=== PATIENT | female | born 2000 | race Hispanic/Latino ===

== ENCOUNTER 2022-04-04 16:50 | Emergency (ER) | payer OTHER, SELFPAY ==
[2022-04-04 16:55] VITALS: BP 110/54; PULSE 103; RESP 16; TEMP 36.6; O2SAT 97; BMI 28.3
--- NOTE | 2022-04-04 17:50 | ED.SYNCOPE ---
HPI - Syncope <Adonay Champagne PA-C - Last Filed: 04/04/22 19:44> General Chief Complaint: Syncope Stated Complaint: Syncope/ 16weeks Time Seen by Provider: 04/04/22 16:54 History of Present Illness HPI narrative: Patient is a 21-year-old female who presents to the ED via EMS after suffering a syncopal episode. Patient was resting and got up and had a syncopal episode that was reported to have been witnessed for approximately 10 minutes. Patient is reportedly 16 weeks and was seen by her OB in admin at her 1st appointment she had an ultrasound at that time which was found that she had twin babies at that point. Ob had concerns about 1 of the children and patient had a four-week follow-up at that time the ultrasound did demonstrate that there was 1 child that did not have a identifiable heart rate and the other baby was doing well. Patient denies any vaginal bleeding or discharge or dysuria. Patient is reportedly . Patient reported taking vitamins. No other medical history reported. Patient denies any pain or discomfort. Review of Systems <Adonay Champagne PA-C - Last Filed: 04/04/22 19:44> Review of Systems ROS Unobtainable: All systems reviewed & are unremarkable except as noted in HPI and below Constitutional Constitutional: Denies chills, Denies fatigue, Denies fever(s), Denies frequent falls, Denies lethargy and Denies weakness Eyes Eyes: Denies change in vision, Denies eye discharge, Denies irritation and Denies loss of vision ENT Ears, Nose, Mouth, and Throat: Denies change in voice, Denies dizziness, Denies neck pain, Denies sore throat and Denies throat swelling Cardiovascular Cardiovascular: Denies chest pain, Reports syncope, Denies irregular heart rhythm, Denies lightheadedness, Denies palpitations, Denies dyspnea, Denies dyspnea on exertion and Denies orthopnea Respiratory Respiratory: Denies cough, Denies dyspnea, Denies dyspnea on exertion and Denies wheezing Gastrointestinal Gastrointestinal: Denies abdominal pain, Denies change in bowel habits, Denies diarrhea, Denies nausea and Denies vomiting Genitourinary Genitourinary: Denies hematuria, Denies flank pain, Denies urinary incontinence and Denies urinary urgency Musculoskeletal Musculoskeletal: Denies back pain, Denies muscle weakness, Denies neck pain, Denies numbness and Denies tingling Integumentary/Breasts Skin/Breast: Denies pruritus, Denies erythema, Denies rash and Denies wounds Neurologic Neurologic: Denies behavioral changes, Denies confusion, Denies dizziness, Reports syncope, Denies frequent falls, Denies loss of vision, Denies numbness, Denies tingling and Denies weakness Psychiatric Psychiatric: Denies anxiety, Denies behavioral changes, Denies confusion, Denies depression, Denies homicidal ideation and Denies suicidal ideation Endocrine Endocrine: Denies fatigue, Denies flushing and Denies palpitations Hematologic/Lymphatic Hematologic/Lymphatic: Denies easy bruising Allergic/Immunologic Allergic/Immunologic: Denies urticaria, Denies throat swelling and Denies wheezing Exam <Adonay Champagne PA-C - Last Filed: 04/04/22 19:44> Initial Vital Signs Initial Vital Signs: Vital Signs Temperature 97.8 F 04/04/22 16:55 Pulse Rate 103 H 04/04/22 16:55 Respiratory Rate 16 04/04/22 16:55 Blood Pressure 110/54 L 04/04/22 16:55 Pulse Oximetry 97 04/04/22 16:55 Oxygen Delivery Method 04/04/22 16:55 Const General: cooperative, healthy appearing and comfortable Nutritional Appearance: average body habitus HENMT Head: normal to inspection and normocephalic Ears: hearing grossly normal bilaterally and external ears normal Nose: external nose normal and nares normal Face and sinus: normal facial exam Mouth: oral mucosae normal Teeth and gingiva: dentition normal Throat: posterior oropharynx normal Eyes General: Yes appearance normal, both eyes and all related structures Pupils: PERRL Resp Effort & Inspection: normal respiratory effort and able to speak in complete sentences Auscultation: clear to auscultation bilaterally Percussion: percussion normal Cardio Palpation: normal PMI Rate: regular rate Rhythm: regular rhythm Heart Sounds: S1 normal and S2 normal <Erika Nazario DO - Last Filed: 04/05/22 05:42> Initial Vital Signs Initial Vital Signs: Vital Signs Temperature 97.8 F 04/04/22 16:55 Pulse Rate 103 H 04/04/22 16:55 Respiratory Rate 16 04/04/22 16:55 Blood Pressure 110/54 L 04/04/22 16:55 Pulse Oximetry 97 04/04/22 16:55 Oxygen Delivery Method 04/04/22 16:55 Course <Adonay Champagne PA-C - Last Filed: 04/04/22 19:44> Orders Ordered: Discontinued Medications Diphenhydramine HCl (Diphenhydramine 50 Mg/Ml Vial) 25 mg IV NOW ONE Stop: 04/04/22 16:56 Sodium Chloride (Normal Saline 0.9%) 1,000 mls @ 1,000 mls/hr IV BOLUS ONE Stop: 04/04/22 17:54 Last Infusion: 04/04/22 20:01 Dose: 0 mls/hr Documented By: Admin: 04/04/22 18:10 Dose: 1,000 mls/hr Documented By: MARANDA Reevaluation(s) Reevaluation #1: Patient got fluid bolus and feeling much better. Patient is agreeable to be discharged home I spoke to her about her follow-up she will follow-up with the OB here. Vital Signs Vital signs: Vital Signs - 8 hr 04/04/22 16:55 04/04/22 19:10 Temperature 97.8 F 98.4 F Pulse Rate 103 H 84 Respiratory Rate 16 18 Blood Pressure 110/54 L 113/69 Pulse Oximetry 97 98 Oxygen Delivery Method Room Air Room Air <Erika Nazario DO - Last Filed: 04/05/22 05:42> Orders Ordered: Discontinued Medications Diphenhydramine HCl (Diphenhydramine 50 Mg/Ml Vial) 25 mg IV NOW ONE Stop: 04/04/22 16:56 Sodium Chloride (Normal Saline 0.9%) 1,000 mls @ 1,000 mls/hr IV BOLUS ONE Stop: 04/04/22 17:54 Last Infusion: 04/04/22 20:01 Dose: 0 mls/hr Documented By: Admin: 04/04/22 18:10 Dose: 1,000 mls/hr Documented By: MARANDA Vital Signs Vital signs: Vital Signs - 8 hr 04/04/22 16:55 04/04/22 19:10 Temperature 97.8 F 98.4 F Pulse Rate 103 H 84 Respiratory Rate 16 18 Blood Pressure 110/54 L 113/69 Pulse Oximetry 97 98 Oxygen Delivery Method Room Air Room Air MDM - Syncope <Adonay Champagne PA-C - Last Filed: 04/04/22 19:44> Differential Diagnosis Differential diagnosis: Likely syncope due to orthostatic hypotension Lab Data Result diagrams: 04/04/22 17:55 04/04/22 17:55 Labs: Lab Results 04/04/22 04/04/22 04/04/22 Range/Units 17:55 17:55 18:20 WBC 16.4 H (4.5-11.0) X10^3/uL RBC 4.46 (4.0-5.2) X10^6/uL Hgb 10.3 L (12.0-16.0) g/dL Hct 31.3 L (36-46) % MCV 70.2 L (80-100) fL MCH 23.0 L (26-34) PG MCHC 32.8 (30-36) % RDW 21.2 H (11.6-14.8) % Plt Count 286 (150-400) X10^3/uL Neut % (Auto) 81.8 H (50-75) % Lymph % (Auto) 10.4 L (25-40) % [place] % (Auto) 7.2 (3-14) % Eos % (Auto) 0.4 L (2-4) % Baso % (Auto) 0.2 (0-2) % Neut # (Auto) 47663 H (3250-7741) /uL Lymph # (Auto) 1700 (6815-3707) /uL [place] # (Auto) 1200 H (0-900) /uL Eos # (Auto) 100 (0-450) /uL Baso # (Auto) 0 (0-100) /uL RBC Morphology See below Hypochromasia 1+ H Microcytosis 2+ H Sodium 135 L (137-145) mmol/L Potassium 3.8 (3.4-5.1) mmol/L Chloride 107 (98-107) mmol/L Carbon Dioxide 22 (22-32) mmol/L BUN 8 (7-17) mg/dL Creatinine 0.57 (0.52-1.04) mg/dL Estimated GFR > 60 (>60) mL/min BUN/Creatinine Ratio 14.0 (6-22) Glucose 88 (70-100) mg/dL Calcium 8.8 (8.4-10.2) mg/dL Total Bilirubin 0.4 (0.2-1.3) mg/dL AST 52 H (14-36) IU/L ALT 86 H (<35) IU/L Alkaline Phosphatase 78 (38-126) U/L Total Protein 6.9 (6.3-8.2) g/dL Albumin 3.9 (3.5-5.0) g/dL Globulin 3.0 (1.7-4.1) g/dL Albumin/Globulin Ratio 1.3 (1.0-2.8) Urine Color Yellow Urine Appearance Clear Urine pH 6.5 (4.5-8.0) Ur Specific [place] 1.015 (1.000-1.035) Urine Protein Negative (Negative) Urine Glucose (UA) Negative (Negative) g/dL Urine Ketones Negative (NEGATIVE) Urine Occult Blood Negative (Negative) Urine Nitrate Negative (Negative) Urine Bilirubin Negative (NEGATIVE) Urine Urobilinogen 0.2 (0.2) E.U./dL Ur Leukocyte Esterase Negative (NEGATIVE) Urine RBC None seen (0-5/HPF) Urine WBC 1-5/hpf (0-5/HPF) Ur Squamous Epith Cells 1-5 /hpf (0-5/HPF) Amorphous Sediment 1+ Urine Bacteria Occasional (0-1) (None) Ur Culture Indicated? Cult not indicated MDM Narrative Medical decision making narrative: Patient is 16 weeks and is with twins. Ultrasound does show that 1 baby does not have a heartbeat and the other baby is doing well normal variability with good fluctuation in heart rate. Patient will need to follow up with Ob for further evaluation. Patient has always had anemia in the past and has been on iron supplements that is been ineffective. Patient recognizes that she is likely going to continue to be anemic and this is likely result of her syncopal episode today. Patient will maintain adequate hydration and will follow up with her Ob next week. Patient will be discharged home. <Erika Nazario, DO - Last Filed: 04/05/22 05:42> Lab Data Labs: Lab Results 04/04/22 04/04/22 04/04/22 Range/Units 17:55 17:55 18:20 WBC 16.4 H (4.5-11.0) X10^3/uL RBC 4.46 (4.0-5.2) X10^6/uL Hgb 10.3 L (12.0-16.0) g/dL Hct 31.3 L (36-46) % MCV 70.2 L (80-100) fL MCH 23.0 L (26-34) PG MCHC 32.8 (30-36) % RDW 21.2 H (11.6-14.8) % Plt Count 286 (150-400) X10^3/uL Neut % (Auto) 81.8 H (50-75) % Lymph % (Auto) 10.4 L (25-40) % [place] % (Auto) 7.2 (3-14) % Eos % (Auto) 0.4 L (2-4) % Baso % (Auto) 0.2 (0-2) % Neut # (Auto) 79258 H (5939-4786) /uL Lymph # (Auto) 1700 (9069-3258) /uL [place] # (Auto) 1200 H (0-900) /uL Eos # (Auto) 100 (0-450) /uL Baso # (Auto) 0 (0-100) /uL RBC Morphology See below Hypochromasia 1+ H Microcytosis 2+ H Sodium 135 L (137-145) mmol/L Potassium 3.8 (3.4-5.1) mmol/L Chloride 107 (98-107) mmol/L Carbon Dioxide 22 (22-32) mmol/L BUN 8 (7-17) mg/dL Creatinine 0.57 (0.52-1.04) mg/dL Estimated GFR > 60 (>60) mL/min BUN/Creatinine Ratio 14.0 (6-22) Glucose 88 (70-100) mg/dL Calcium 8.8 (8.4-10.2) mg/dL Total Bilirubin 0.4 (0.2-1.3) mg/dL AST 52 H (14-36) IU/L ALT 86 H (<35) IU/L Alkaline Phosphatase 78 (38-126) U/L Total Protein 6.9 (6.3-8.2) g/dL Albumin 3.9 (3.5-5.0) g/dL Globulin 3.0 (1.7-4.1) g/dL Albumin/Globulin Ratio 1.3 (1.0-2.8) Urine Color Yellow Urine Appearance Clear Urine pH 6.5 (4.5-8.0) Ur Specific [place] 1.015 (1.000-1.035) Urine Protein Negative (Negative) Urine Glucose (UA) Negative (Negative) g/dL Urine Ketones Negative (NEGATIVE) Urine Occult Blood Negative (Negative) Urine Nitrate Negative (Negative) Urine Bilirubin Negative (NEGATIVE) Urine Urobilinogen 0.2 (0.2) E.U./dL Ur Leukocyte Esterase Negative (NEGATIVE) Urine RBC None seen (0-5/HPF) Urine WBC 1-5/hpf (0-5/HPF) Ur Squamous Epith Cells 1-5 /hpf (0-5/HPF) Amorphous Sediment 1+ Urine Bacteria Occasional (0-1) (None) Ur Culture Indicated? Cult not indicated Discharge Plan Departure Patient Disposition: Home Clinical Impression: 16 weeks gestation of Anemia Qualifiers: Anemia type: unspecified type Qualified Code(s): D64.9 - Anemia, unspecified Syncope Qualifiers: Syncope type: unspecified Qualified Code(s): R55 - Syncope and collapse Instructions: DI for Syncope in Adults (Fainting), DI for -- Discomforts and Remedies Activity Restrictions/Additional Instructions: You were seen today for your syncopal episode that happened today. You are aware you are anemic and I would encourage you to continue to hydrate as much as possible. Your OB follow-up should be this week. Contact them tomorrow to schedule follow-up appointment. Thank you for the opportunity to care for Stand Alone Forms: Work Release Note Visit Report Forms: Patient Portal/API <Erika Nazario DO - Last Filed: 04/05/22 05:42> Cosign ED Attending Coskelvinature Attestation: I was immediately available in the department for consultation. Documentation has been reviewed. I agree with assessment and plan.
[2022-04-04 18:10] LABS: Add Manual Diff / Slide Review NO; Basophils Absolute Auto 0 /uL (0-100); Basophils Percent Auto 0.2 % (0-2); Eosinophils Absolute Auto 100 /uL (0-450); Eosinophils Percent Auto 0.4 % (2-4); Hematocrit 31.3 % (36-46); Hemoglobin 10.3 g/dL (12.0-16.0); Lymphocytes Absolute Auto 1700 /uL (1100-4500); Lymphocytes Percent Auto 10.4 % (25-40); Mean Corpuscular HGB Conc 32.8 % (30-36); Mean Corpuscular Volume 70.2 fL (80-100); Monocytes Absolute Auto 1200 /uL (0-900); Monocytes Percent Auto 7.2 % (3-14); Neutrophils Absolute Auto 13400 /uL (1500-7000); Neutrophils Percent Auto 81.8 % (50-75); Platelet Count 286 X10^3/uL (150-400); Red Blood Cell Count 4.46 X10^6/uL (4.0-5.2); Red Cell Distribution Width 21.2 % (11.6-14.8); White Blood Cell Count 16.4 X10^3/uL (4.5-11.0)
[2022-04-04] MEDS: SODIUM CHLORIDE 0.9% 1,000 ML 1000 ML IV (18:10)
[2022-04-04 18:36] LABS: Alanine Aminotransferase 86 IU/L (<35); Albumin 3.9 g/dL (3.5-5.0); Albumin Globulin Ratio 1.3 (1.0-2.8); Alkaline Phosphatase 78 U/L (38-126); Aspartate Aminotransferase 52 IU/L (14-36); Bilirubin Total 0.4 mg/dL (0.2-1.3); Blood Urea Nitrogen 8 mg/dL (7-17); Calcium 8.8 mg/dL (8.4-10.2); Carbon Dioxide 22 mmol/L (22-32); Chloride 107 mmol/L (98-107); Estimated Glomerular Filt Rate > 60 mL/min (>60); Glucose 88 mg/dL (70-100); HEMOLYSIS < 15 (0-50); Potassium 3.8 mmol/L (3.4-5.1); Sodium 135 mmol/L (137-145); Total Protein 6.9 g/dL (6.3-8.2)
[2022-04-04 18:59] LABS: Appearance Urine UA CLEAR; Bilirubin Urine UA NEGATIVE (NEGATIVE); Color Urine UA YELLOW; Glucose Urine UA NEGATIVE (Negative); Ketones Urine UA NEGATIVE (NEGATIVE); Leukocyte Esterase Urine UA NEGATIVE (NEGATIVE); Nitrite Urine UA NEGATIVE (Negative); Occult Blood Urine UA NEGATIVE (Negative); Protein Urine UA NEGATIVE (Negative); Specific Gravity Urine UA 1.015 (1.000-1.035); Urobilinogen Urine UA 0.2 E.U./dL (0.2)
[2022-04-04 19:00] LABS: Hypochromasia 1+; Microcytosis 2+
[2022-04-04 19:08] LABS: Amorphous Sediment Urine 1+; Bacteria Urine Occasional (0-1); RBC Urine None Seen (0-5/HPF); Squamous Epithelial Cell Urine 1-5 /HPF (0-5/HPF); WBC Urine 1-5/HPF (0-5/HPF); pH Urine UA 6.5 (4.5-8.0)
[2022-04-04 19:09] LABS: Culture Indicated Urine Cult Not Indicated
[2022-04-04 19:10] VITALS: BP 113/69; PULSE 84; RESP 18; TEMP 36.9; O2SAT 98
[2022-04-04 20:01] VITALS: BP 114/64; PULSE 81; RESP 20; O2SAT 99
== END 2022-04-04 20:01 | disposition home or self-care (01) ==
PROVIDERS: Emergency Provider Physician Assistant
DX: O26.92 Pregnancy related conditions, unspecified, second trimester (principal); R55 Syncope and collapse; D64.9 Anemia, unspecified; Z3A.16 16 weeks gestation of pregnancy
CPT/HCPCS: 36415; 80053; 81001; 85025; 96360; 96361; 99284

== ENCOUNTER → 2022-04-28 14:11 | Outpatient (CLI) | payer OTHER, SELFPAY ==
[2022-05-01 13:36] LABS: AFP, Serum 51.3 ng/mL (.); Estriol, Free 1.77 ng/mL (.); Inhibin A, Dimeric 136.59 pg/mL (.); Inhibin A, MoM 0.96 (.); Maternal Ethnicity Other (.); Maternal Weight 208 lbs (.); Number of Fetuses No (.); OSBR Risk 1 IN 9231 (.); Results Report (.); Test Results *Screen Negative* (.); hCG, MoM 2.18 (.); hCG, Serum 46203 mIU/mL (.)
== END ==
PROVIDERS: PCP Student in an Organized Health Care Education/Training Program; Referring Provider Obstetrics & Gynecology; Visit Provider Obstetrics & Gynecology
DX: Z34.02 Encounter for supervision of normal first pregnancy, second trimester (principal); Z3A.19 19 weeks gestation of pregnancy
CPT/HCPCS: 36415; 82105; 82677; 84702; 86336

== ENCOUNTER 2022-05-04 19:01 | Outpatient (CLI) | payer OTHER, SELFPAY ==
--- NOTE | 2022-05-04 19:30 | DI.US.S_ITS ---
PROCEDURE: US OB LIMITED INDICATIONS: Severe pain, cramping OUTSIDE/PRIOR DATING DATA: Last menstrual period (LMP): Unknown. The calculations are made using the working LU of 09/17/2022. TECHNIQUE: Real-time scanning was performed of the fetus, with image documentation. COMPARISON: [facility], US, US OB <= 14 WEEKS FETUS, 04/28/2022, 14:03. FINDINGS: A single living intrauterine gestation is present. Presentation: Vertex. Placenta: Placental position is posterior fundal, without previa. Amniotic fluid index: 17 cm, normal range is 5-24 cm. Single deepest vertical pocket is 4.7 cm. heart rate: 144 beats per minute. Maternal cervical canal: 3.6 cm long. Normal lower limit is 2.5 cm. Clinically estimated gestational age: 20 weeks 4 days IMPRESSION: 1. Single living intrauterine demonstrated in vertex presentation. 2. DAYNE within normal limits. 3. Follow-up anatomy scan may be performed for further evaluation if clinically indicated. Dictated by: Mark Mendez M.D. on 05/04/2022 at 21:46 Approved by: Mark Mendez M.D. on 05/04/2022 at 21:49
--- NOTE | 2022-05-04 19:32 | PM.OBTRLD ---
Visit Information Visit Information Date of evaluation: 05/04/22 Primary OB Provider: Chapis Hicks On-call OB Provider: Connie Ybarra Reason for Evaluation: Yes pre-term labor Comments/Additional reasons for admission: This is a 21-year-old at 20 weeks and 4 days with LU of 09/17/22 presenting with severe cramping abdominal pain and low back pain. She denies bleeding or leaking and reports good movement. The pain started in the middle of the day today and has steadily increased. She now rates the pain 04/23 but states it was more severe on the way here. She has not had fevers, vomiting or diarrhea. No pain with urination. care started at [facility] in [place] then patient moved [place] and established care with Dr. Hicks. This was initially a twin however there was a demise of one of the twins at 6 weeks. She has been seen by [facility] and had an anatomy scan 05/01/22 which was reportedly normal (records are not yet available). Vital Signs Vital Signs: Temperature 36.6? blood pressure 122/61 heart rate 102 PFSH Surgical History [place] teeth extracted Family History Grandmother Diabetes mellitus Social History marital status: number of children: 0 household members: spouse lives independently: Yes housing: house pets and animals: Yes (1 dog) education level: high school occupational status: employed (active duty) current occupational exposures/hazards: No special milan needs: No seatbelt use: always water heater temp set < 120 deg: No working smoke detector in home: Yes fire extinguisher in home: Yes carbon monox detector in home: Yes firearms in home: No do you feel safe at home: Yes Smoking Status: Never smoker second hand exposure: No alcohol intake: never substance use type: does not use during the past year weight has: remained stable well-balanced diet: daily or most days daily servings fruits/ve-4 caffeine: No Type(s) of exercise: walking frequency: 3-4 times per week Exam Const General: in distress and anxious HENMT Head: normal to inspection Eyes General: appearance normal, both eyes and all related structures Resp Effort & Inspection: normal respiratory effort Auscultation: clear to auscultation bilaterally Cardio Rate: regular rate Rhythm: regular rhythm GI Other: Gravid, nontender over lower abdomen Back/Spine/Pelvis Back: normal to inspection and back tenderness (lower lumbar spine and posterior pelvis) Extrem General: normal to inspection and no pedal edema Objective Labs Result Diagrams: 05/04/22 19:30 05/04/22 20:08 Evaluation Evaluation Baseline heart rate: 140 Contraction Frequency (minutes): 0 Diagnosis, Plan/Disposition Final Diagnosis (1) 20 weeks gestation of : Status: Acute (2) Abdominal pain: Status: Acute Plan/Disposition Plan: 21-year-old at 20 weeks and 4 days gestation who presented with concern for labor due to severe abdominal pain, cramping and low back pain. There was no bleeding or leaking of fluid. Vital signs normal. No contractions on the monitor. Ultrasound showed a viable fetus, DAYNE of 17 and cervical length of 3.6 cm. Pain improved after a liter of fluid and rest though she still had some low back pain. Labs were reassuring against preeclampsia and blood pressure normal. Low suspicion for GI illness given lack of nausea, vomiting or diarrhea. UA was normal ruling out UTI or nephrolithiasis. Discussed stretches for low back pain in and encouraged copious hydration for the remainder of . Patient was appreciative of reassurance against serious illness or complications with the . Follow-up as scheduled in clinic or return sooner if needed. OB Disposition: home
[2022-05-04 20:04] LABS: Add Manual Diff / Slide Review NO; Basophils Absolute Auto 0 /uL (0-100); Basophils Percent Auto 0.1 % (0-2); Eosinophils Absolute Auto 100 /uL (0-450); Eosinophils Percent Auto 0.5 % (2-4); Hematocrit 32.3 % (36-46); Hemoglobin 10.5 g/dL (12.0-16.0); Lymphocytes Absolute Auto 1500 /uL (1100-4500); Lymphocytes Percent Auto 10.7 % (25-40); Mean Corpuscular HGB Conc 32.6 % (30-36); Mean Corpuscular Hemoglobin 23.8 PG (26-34); Mean Corpuscular Volume 73.1 fL (80-100); Monocytes Absolute Auto 1500 /uL (0-900); Monocytes Percent Auto 10.5 % (3-14); Neutrophils Absolute Auto 11100 /uL (1500-7000); Neutrophils Percent Auto 78.2 % (50-75); Platelet Count 299 X10^3/uL (150-400); Red Blood Cell Count 4.43 X10^6/uL (4.0-5.2); Red Cell Distribution Width 22.1 % (11.6-14.8); White Blood Cell Count 14.2 X10^3/uL (4.5-11.0)
[2022-05-04 20:27] LABS: Appearance Urine UA CLEAR; Bilirubin Urine UA NEGATIVE (NEGATIVE); Color Urine UA YELLOW; Glucose Urine UA NEGATIVE (Negative); Ketones Urine UA NEGATIVE (NEGATIVE); Leukocyte Esterase Urine UA 1+ (NEGATIVE); Nitrite Urine UA NEGATIVE (Negative); Occult Blood Urine UA NEGATIVE (Negative); Protein Urine UA NEGATIVE (Negative); Specific Gravity Urine UA 1.015 (1.000-1.035); Urobilinogen Urine UA 0.2 E.U./dL (0.2)
[2022-05-04 20:31] LABS: Alanine Aminotransferase 25 IU/L (<35); Albumin 3.6 g/dL (3.5-5.0); Albumin Globulin Ratio 1.3 (1.0-2.8); Alkaline Phosphatase 83 U/L (38-126); Aspartate Aminotransferase 32 IU/L (14-36); BUN Creatinine Ratio 18.9 (6-22); Bilirubin Total 0.3 mg/dL (0.2-1.3); Blood Urea Nitrogen 10 mg/dL (7-17); Calcium 8.8 mg/dL (8.4-10.2); Carbon Dioxide 22 mmol/L (22-32); Chloride 108 mmol/L (98-107); Estimated Glomerular Filt Rate > 60 mL/min (>60); Globulin 2.8 g/dL (1.7-4.1); Glucose 89 mg/dL (70-100); HEMOLYSIS < 15 (0-50); Potassium 3.8 mmol/L (3.4-5.1); Sodium 136 mmol/L (137-145); Total Protein 6.4 g/dL (6.3-8.2)
[2022-05-04 20:45] LABS: Bacteria Urine Few (2-10); Culture Indicated Urine Specimen Cultured; RBC Urine 0-1/HPF (0-5/HPF); Squamous Epithelial Cell Urine 1-5 /HPF (0-5/HPF); WBC Urine 1-5/HPF (0-5/HPF)
[2022-05-04 20:56] LABS: Anisocytosis 1+; Hypochromasia 1+; Microcytosis 2+
== END 2022-05-04 21:04 | disposition home or self-care (01) ==
LOC: OB 05-05 13:18
PROVIDERS: Family Medicine; PCP Student in an Organized Health Care Education/Training Program; Referring Provider Obstetrics & Gynecology; Visit Provider Obstetrics & Gynecology
DX: O26.892 Other specified pregnancy related conditions, second trimester (principal); Z3A.20 20 weeks gestation of pregnancy; R10.9 Unspecified abdominal pain
CPT/HCPCS: 59025; 76815; 80053; 81001; 85025; 86900; 86901; 87086; 96360; G0378; G0379

== ENCOUNTER 2022-05-14 19:41 | Emergency (ER) | payer OTHER, SELFPAY ==
[2022-05-14 19:59] VITALS: BP 128/70; PULSE 95; RESP 18; TEMP 36.8; O2SAT 100; BMI 29.2
--- NOTE | 2022-05-14 21:32 | PC.NURSE ---
pt walked to the bathroom with a steady gate
--- NOTE | 2022-05-14 21:36 | ED_ITS ---
HPI - Female Genitourinary General Chief complaint: Urogenital-Female Stated complaint: irritation in vagina Time Seen by Provider: 05/14/22 21:32 Mode of arrival: Ambulatory History of Present Illness HPI Narrative: Patient is [address] weeks [address] Hicks, LMP December 11. Due date is September 17, 2022. Has vaginal irritation. No urinary complaints. No fluid leak or vaginal bleeding. Patient denies abdominal pain. No pelvic pain. She states has clear discharge which is usual for her. She thinks the high heat has irritated her pelvic area. She states has been very sweaty and a lot of moisture around the underwear Related Data Home Medications Medication Instructions Recorded Confirmed prenat.vits,li,[id number] 1 tab PO DAILY 04/27/22 04/27/22 Allergies Allergy/AdvReac Type Severity Reaction Status Date / Time No Known Allergies Allergy Verified 04/27/22 11:37 Review of Systems Review of Systems Narrative: GENERAL: Denies chills, fatigue, malaise, fever, sweats. HEENT: Denies sinus pain, ear pain, sore throat RESPIRATORY: Denies dyspnea, cough CARDIOVASCULAR: Denies chest pain, palpitations GASTROINTESTINAL: Denies nausea, vomiting, abdominal pain : Denies dysuria, frequency, hematuria, positive for vaginal discharge, positive for vaginitis MUSCULOSKELETAL: denies muscle or bony pain SKIN: Denies rash, skin lesions NEUROLOGIC: Denies weakness, numbness ROS Unobtainable: All systems reviewed & are unremarkable except as noted in HPI and below Patient History Surgical History [place] teeth extracted Family History Grandmother Diabetes mellitus Exam Narrative Exam Narrative: GENERAL: in no distress, not toxic not dyspneic HEAD: Normocephalic. EYES: Pupils equal round No scleral icterus. ENT: Mucous membranes moist. NECK: Trachea midline. CARDIOVASCULAR: Regular rate and rhythm without murmurs RESPIRATORY: Clear to auscultation. Breath sounds equal bilaterally. No wheezes, rales, or rhonchi. GASTROINTESTINAL: Abdomen soft, non-tender : Nurse Isabel, at bedside to check for on. Normal external exam. Patient points to exact location irritation is lateral to the labia majora on the left side. Pubic hair intact. No cellulitis induration or tenderness. No lesions or vesicles. Nontender. Appears normal skin color to remaining surrounding skin. It is superior lateral to the left labia majora. No abscess EXTREMITIES: No gross deformities. BACK: No flank tenderness. NEURO: AOx4. SKIN: Warm and dry PSYCH: Not anxious, is cooperative Initial Vital Signs Initial Vital Signs: Vital Signs Temperature 98.2 F 05/14/22 19:59 Pulse Rate 95 H 05/14/22 19:59 Respiratory Rate 18 05/14/22 19:59 Blood Pressure 128/70 05/14/22 19:59 Pulse Oximetry 100 05/14/22 19:59 Oxygen Delivery Method 05/14/22 19:59 Course Course Course Narrative: No new issues during course of stay Orders Ordered: ED Orders 05/14/22 21:35 GC Screen Stat Wet Prep Tric BV Yvette Stat Reevaluation(s) Reevaluation #1: Patient was more descriptive where her discomfort was when preparing for pelvic exam. Reviewed with her changes needed to help reduce moisture and to have list heat and pelvic area. heart tone of 140 Time: 22:16 Vital Signs Vital signs: Vital Signs - 8 hr 05/14/22 19:59 Temperature 98.2 F Pulse Rate 95 H Respiratory Rate 18 Blood Pressure 128/70 Pulse Oximetry 100 Oxygen Delivery Method Room Air MDM - Female Genitourinary Differential Diagnosis Differential diagnosis: Likely other (Cellulitis/folliculitis/abscess) Lab Data Labs: Urine Dip Bedside Urine Glucose Negative Bedside Urine Bilirubin - Negative Bedside Urine Ketone - Negative Urine Specific [place] 1.030 Bedside Urine Occult Blood - Negative Bedside Urine pH 6 Bedside Urine Protein - Negative Bedside Urine Urobilinogen - Negative Bedside Urine Nitrite - Negative Bedside Urine Leukocytes - Negative Esterase MDM Narrative Medical decision making narrative: Appropriate for discharge home. Patient not requiring pelvic exam/swabs. Patient complaints is external in the mons pubis/hairline. Likely irritation from the heat wave were having currently 90+ F heat wave. She states she will try to wear looser clothing. She is wearing pants during this time of heat. Return precautions reviewed with her. Cool clothing suggestions given to her by nurse. Not toxic at discharge Discharge Plan Departure Patient Disposition: Home Clinical Impression: Dermatitis Instructions: DI for Contact Dermatitis Activity Restrictions/Additional Instructions: Be sure to wear cotton material underwear. Be sure to wear loose clothing as this may help reduce sweating in the pelvis area. See your OBGYN doctor, Dr. Hciks as scheduled. Return if worsening questions or concerns. Keep pelvic area cool and dry as best as you can Prescriptions: No Action prenat.vits,li,[id number] Tablet 1 tab PO DAILY Referrals: Cierra Restrepo MD [Primary Care Provider] - Visit Report Forms: Patient Portal/API
--- NOTE | 2022-05-14 22:14 | PC.NURSE ---
Pt reports pain to upper left external vaginal area, chaperoned assessment by Dr. Sinclair and no skin issues or wounds noted.
== END 2022-05-14 22:15 | disposition home or self-care (01) ==
PROVIDERS: Emergency Provider Emergency Medicine; PCP Student in an Organized Health Care Education/Training Program
DX: L30.9 Dermatitis, unspecified (principal)
CPT/HCPCS: 81003; 99282; 99283

== ENCOUNTER → 2022-05-18 14:31 | Outpatient (CLI) | payer OTHER, SELFPAY | PROVIDERS: PCP Student in an Organized Health Care Education/Training Program; Visit Provider Physician Assistant Medical | DX: Z34.02 Encounter for supervision of normal first pregnancy, second trimester (principal); Z3A.22 22 weeks gestation of pregnancy | CPT/HCPCS: 87086 ==

== ENCOUNTER → 2022-05-22 07:24 | Outpatient (CLI) | payer OTHER, SELFPAY ==
--- NOTE | 2022-05-22 07:27 | DI.US.S_ITS ---
PROCEDURE: US OB >= 14 WEEKS FETUS INDICATIONS: anatomy scan OUTSIDE/PRIOR DATING DATA: Last menstrual period (LMP): December 11, 2021. LMP-based estimated date of delivery (LU): September 17, 2022. First dating scan (date and location): May 22, 2022. Estimated date of delivery (LU) from first dating scan: September 13, 2022 TECHNIQUE: Real-time scanning was performed of the fetus, with image documentation and biometric measurements. COMPARISON: None. FINDINGS: General: A single living intrauterine gestation is present. Presentation: Vertex. Placenta: Placental position is posterior , without previa. Amniotic fluid index: 18 cm, normal range is 5-24 cm. heart rate: 144 beats per minute. Maternal cervical canal: 4.1 cm long. Normal lower limit is 2.5 cm. biometrics: Biparietal diameter: 5.9 cm, 24 weeks, 2 days Head circumference: 21.9 cm, 24 weeks, 0 days Abdominal circumference: 18.3 cm, 23 weeks, 1 day Femur length: 4.1 cm, 23 weeks, 3 days Clinically estimated gestational age: 23 weeks, 1 day Composite gestational age from present scan: 23 weeks, 5 day Estimated weight and percentile: 590 g, 55% Anatomic survey: Neuro: Ventricles are non-dilated at less than 10 mm. Cisterna magna is normal at 3-11 mm. Cerebellum is normal in size and morphology. Nuchal skin fold: Normal at less than 6 mm between 14-21 weeks gestational age. Face: Nose and lips, facial profile are normal. Spine: No evidence for spina bifida. Heart: 4-chambered heart is present, with normal ventricular outflow tracts. Diaphragm: Diaphragm is intact. Stomach: Left-sided stomach is present. Kidneys: No hydronephrosis. Normal is less than 5 mm in 2nd trimester, less than 7 mm in 3rd trimester. Cord: 3-vessel cord has orthotopic insertion. Bladder: Normal in size. Extremities: All 4 extremities identified. IMPRESSION: 1. Single live intrauterine gestation with a composite gestational age of 23 weeks, 5 days which is concordant by initial scan. 2. No sonographic anatomic abnormalities. We strive to produce accurate, complete, and clear reports of imaging services. To assist us in improving patient care, this report was composed using standard report templates and voice recognition software. Therefore, it may contain abnormal punctuation, insertions and/or omissions. Occasional wrong-word or sound-alike substitutions may occur. Though we review the report and make efforts to correct it, we do recommend that the report be read carefully in proper context to recognize any text inaccuracies. Dictated by: Ana York M.D. on 05/22/2022 at 10:25 Approved by: Ana York M.D. on 05/22/2022 at 10:28
== END ==
PROVIDERS: PCP Student in an Organized Health Care Education/Training Program; Referring Provider Physician Assistant Medical; Visit Provider Physician Assistant Medical
DX: Z34.02 Encounter for supervision of normal first pregnancy, second trimester (principal); Z3A.23 23 weeks gestation of pregnancy
CPT/HCPCS: 76811

== ENCOUNTER 2022-06-08 12:13 | Emergency (ER) | payer OTHER, SELFPAY ==
[2022-06-08 12:22] VITALS: BP 140/81; PULSE 98; RESP 12; TEMP 36.1; O2SAT 99; BMI 28.3
[2022-06-08] MEDS: SODIUM CHLORIDE 0.9% 1,000 ML 1000 ML IV (12:37)
[2022-06-08 12:57] LABS: Add Manual Diff / Slide Review NO; Basophils Absolute Auto 0 /uL (0-100); Basophils Percent Auto 0.3 % (0-2); Eosinophils Absolute Auto 100 /uL (0-450); Eosinophils Percent Auto 0.8 % (2-4); Hematocrit 36.1 % (36-46); Hemoglobin 11.9 g/dL (12.0-16.0); Lymphocytes Absolute Auto 1600 /uL (1100-4500); Lymphocytes Percent Auto 12.3 % (25-40); Mean Corpuscular HGB Conc 32.9 % (30-36); Mean Corpuscular Hemoglobin 24.1 PG (26-34); Mean Corpuscular Volume 73.2 fL (80-100); Monocytes Absolute Auto 1500 /uL (0-900); Monocytes Percent Auto 11.3 % (3-14); Neutrophils Absolute Auto 10100 /uL (1500-7000); Neutrophils Percent Auto 75.3 % (50-75); Platelet Count 297 X10^3/uL (150-400); Red Blood Cell Count 4.94 X10^6/uL (4.0-5.2); White Blood Cell Count 13.3 X10^3/uL (4.5-11.0)
[2022-06-08 13:08] LABS: Alanine Aminotransferase 30 IU/L (<35); Albumin 3.8 g/dL (3.5-5.0); Albumin Globulin Ratio 1.1 (1.0-2.8); Alkaline Phosphatase 115 U/L (38-126); Aspartate Aminotransferase 31 IU/L (14-36); BUN Creatinine Ratio 19.1 (6-22); Bilirubin Total 0.3 mg/dL (0.2-1.3); Blood Urea Nitrogen 9 mg/dL (7-17); Calcium 9.1 mg/dL (8.4-10.2); Carbon Dioxide 20 mmol/L (22-32); Chloride 107 mmol/L (98-107); Estimated Glomerular Filt Rate > 60 mL/min (>60); Globulin 3.4 g/dL (1.7-4.1); Glucose 83 mg/dL (70-100); HEMOLYSIS < 15 (0-50); Potassium 4.2 mmol/L (3.4-5.1); Sodium 137 mmol/L (137-145); Total Protein 7.2 g/dL (6.3-8.2)
--- NOTE | 2022-06-08 14:03 | ED_ITS ---
HPI - Headache General Chief Complaint: Headache Stated Complaint: Migraines Time Seen by Provider: 06/08/22 13:01 Mode of arrival: Family Vehicle History of Present Illness HPI Narrative: The patient is a 21-year-old female , started as twin with 1 demise at 6 weeks presenting today with headache. She says however since she entered her 2nd trimester she has had headaches. She was told to come to the ED they come on spontaneously Tylenol does not really help may go away she denies any nausea vomiting vision changes numbness tingling or weakness. She denies any chest pain or worsening shortness of breath. She has no abdominal pain or vaginal bleeding. Headache was apparently severe yesterday but seems to be improving a little bit today. She is noted to be mildly hypertensive with a blood pressure of 140/81, previous blood pressures have all been significantly lower. Related Data Home Medications Medication Instructions Recorded Confirmed prenat.vits,li,[id number] 1 tab PO DAILY 04/27/22 05/18/22 Previous Rx's Medication Instructions Recorded cephalexin 500 mg capsule 500 mg PO BID 5 days #10 caps 06/08/22 Allergies Allergy/AdvReac Type Severity Reaction Status Date / Time No Known Allergies Allergy Verified 06/08/22 12:25 Review of Systems Review of Systems Narrative: GENERAL: Denies chills, fatigue, malaise, fever, sweats, travel HEENT: Denies sinus pain, ear pain, sore throat, difficulty swallowing, neck pain RESPIRATORY: Denies dyspnea, cough, wheezing, hemoptysis, sputum. CARDIOVASCULAR: Denies chest pain, palpitations, orthopnea, edema GASTROINTESTINAL: Denies nausea, vomiting, abdominal pain, diarrhea, constipation, melena. : Denies dysuria, frequency, incontinence, hematuria, urinary retention, flank pain. MUSCULOSKELETAL: Denies weakness, joint pain, or bony pain SKIN: No rash, no erythema, no pruritus NEUROLOGIC: See HPI PSYCHIATRIC: No concerning psychosocial issues. 12 point review of systems is negative except for those stated above and HPI Patient History Surgical History [place] teeth extracted Family History Grandmother Diabetes mellitus Social History (Reviewed 06/08/22 @ 14:28 by HEDY Smalls marital status: number of children: 0 household members: spouse lives independently: Yes housing: house pets and animals: Yes (1 dog) education level: high school occupational status: employed (active duty) current occupational exposures/hazards: No special milan needs: No seatbelt use: always water heater temp set < 120 deg: No working smoke detector in home: Yes fire extinguisher in home: Yes carbon monox detector in home: Yes firearms in home: No do you feel safe at home: Yes Smoking Status: Never smoker second hand exposure: No alcohol intake: never substance use type: does not use during the past year weight has: remained stable well-balanced diet: daily or most days daily servings fruits/ve-4 caffeine: No Type(s) of exercise: walking frequency: 3-4 times per week Smoking Status: Never smoker Exam Initial Vital Signs Initial Vital Signs: Vital Signs Temperature 97.0 F L 06/08/22 12:22 Pulse Rate 98 H 06/08/22 12:22 Respiratory Rate 12 06/08/22 12:22 Blood Pressure 140/81 06/08/22 12:22 Pulse Oximetry 99 06/08/22 12:22 Oxygen Delivery Method 06/08/22 12:22 GENERAL: Well-appearing 21-year-old female HEENT: Head atraumatic,EOMI, pupils reactive, face symmetric, moist mucous membranes CARDIOVASCULAR: Regular rate and rhythm without murmurs, rubs or gallops. RESPIRATORY: Breath sounds equal bilaterally, no wheezes rales or rhonchi. ABDOMEN: Soft, gravid nontender EXTREMITIES: Normal range of motion, no clubbing or edema. Neurovascularly intact NEUROLOGICAL: Alert and oriented x4.Normal gait and speech. Cranial nerves II through XII grossly intact. Drill Press Set Up Operator strength equal bilaterally SKIN: Warm, dry, no laceration, no petechiae, no rashes or lesions. Course Orders Ordered: ED Orders 06/08/22 12:43 Complete Blood Count AUTO DIFF Stat Comprehensive Metabolic Panel Stat 06/08/22 14:21 Urinalysis and Microscopic Stat Discontinued Medications Sodium Chloride (Normal Saline 0.9%) 1,000 mls @ 1,000 mls/hr IV BOLUS ONE Stop: 06/08/22 13:32 Last Infusion: 06/08/22 14:00 Dose: 0 mls/hr Documented By: Admin: 06/08/22 12:37 Dose: 1,000 mls/hr Documented By: NIKHIL Vital Signs Vital signs: Vital Signs - 8 hr 06/08/22 12:22 06/08/22 14:25 Temperature 97.0 F L Pulse Rate 98 H 85 Respiratory Rate 12 18 Blood Pressure 140/81 137/65 Pulse Oximetry 99 100 Oxygen Delivery Method Room Air MDM - Headache Lab Data Result diagrams: 06/08/22 12:43 06/08/22 12:43 Labs: Lab Results 06/08/22 06/08/22 06/08/22 Range/Units 12:43 12:43 14:21 WBC 13.3 H (4.5-11.0) X10^3/uL RBC 4.94 (4.0-5.2) X10^6/uL Hgb 11.9 L (12.0-16.0) g/dL Hct 36.1 (36-46) % MCV 73.2 L (80-100) fL MCH 24.1 L (26-34) PG MCHC 32.9 (30-36) % RDW 20.0 H (11.6-14.8) % Plt Count 297 (150-400) X10^3/uL Neut % (Auto) 75.3 H (50-75) % Lymph % (Auto) 12.3 L (25-40) % [place] % (Auto) 11.3 (3-14) % Eos % (Auto) 0.8 L (2-4) % Baso % (Auto) 0.3 (0-2) % Neut # (Auto) 86781 H (1379-9539) /uL Lymph # (Auto) 1600 (0036-1502) /uL [place] # (Auto) 1500 H (0-900) /uL Eos # (Auto) 100 (0-450) /uL Baso # (Auto) 0 (0-100) /uL Sodium 137 (137-145) mmol/L Potassium 4.2 (3.4-5.1) mmol/L Chloride 107 (98-107) mmol/L Carbon Dioxide 20 L (22-32) mmol/L BUN 9 (7-17) mg/dL Creatinine 0.47 L (0.52-1.04) mg/dL Estimated GFR > 60 (>60) mL/min BUN/Creatinine Ratio 19.1 (6-22) Glucose 83 (70-100) mg/dL Calcium 9.1 (8.4-10.2) mg/dL Total Bilirubin 0.3 (0.2-1.3) mg/dL AST 31 (14-36) IU/L ALT 30 (<35) IU/L Alkaline Phosphatase 115 (38-126) U/L Total Protein 7.2 (6.3-8.2) g/dL Albumin 3.8 (3.5-5.0) g/dL Globulin 3.4 (1.7-4.1) g/dL Albumin/Globulin Ratio 1.1 (1.0-2.8) Urine Color Yellow Urine Appearance Sl cloudy Urine pH 6.5 (4.5-8.0) Ur Specific [place] 1.020 (1.000-1.035) Urine Protein Negative (Negative) Urine Glucose (UA) Negative (Negative) g/dL Urine Ketones Negative (NEGATIVE) Urine Occult Blood Trace-intact (Negative) Urine Nitrate Negative (Negative) Urine Bilirubin Negative (NEGATIVE) Urine Urobilinogen 0.2 (0.2) E.U./dL Ur Leukocyte Esterase 2+ H (NEGATIVE) Urine RBC 5-10/hpf H (0-5/HPF) Urine WBC 30-100/hpf H (0-5/HPF) Ur Squamous Epith Cells 10-30 /hpf H D (0-5/HPF) Urine Bacteria Many (>30) H (None) Ur Culture Indicated? Cult not indicated MDM Narrative Medical decision making narrative: Patient is no longer having headache she has been having headaches for number of weeks. I guess it got a little bit worse. Initial blood pressure was elevated 140/80 however she does not have any protein in her urine and blood pressure came down slightly concern for may be early preeclampsia but not preeclampsia yet. Urine has many bacteria in it will treat her for UTI. We discussed how chandra gonzalez should check her blood pressure work today this may be contributing to her headache. No sign of HELLP syndrome either. She is follow closely with Ob Discharge Plan Departure Patient Disposition: Home Clinical Impression: UTI (urinary tract infection), Headache Instructions: DI for Urinary Tract Infection in Children, DI for Headache Activity Restrictions/Additional Instructions: *You have been diagnosed with headache and bladder infection *What to do: I am sorry you keep having headaches, bladder infection where may not be contributing to this I do recommend checking her blood pressure once a day and recording it. If greater than 140/90 please call your OBGYN *Continue to take medications as directed Keflex 500 mg twice a day 5 days -->SENT TO [facility] *Follow up with your primary care provider in 2-3 days or call [phone] *Return to ER if you should have a worsening headache abdominal pain, persistent vomiting, blood pressure. Your than 140/90 or any new, worsening or concerning symptoms Prescriptions: New cephalexin 500 mg capsule 500 mg PO BID 5 Days Qty: 10 0RF No Action prenat.vits,li,[id number] Tablet 1 tab PO DAILY Referrals: Cierra Restrepo MD [Primary Care Provider] - Chapis Hicks MD [Physician] - Stand Alone Forms: Work Release Note Visit Report Forms: Patient Portal/API
[2022-06-08 14:25] VITALS: BP 137/65; PULSE 85; RESP 18; O2SAT 100
[2022-06-08 14:51] LABS: Appearance Urine UA SL CLOUDY; Bilirubin Urine UA NEGATIVE (NEGATIVE); Color Urine UA YELLOW; Glucose Urine UA NEGATIVE (Negative); Ketones Urine UA NEGATIVE (NEGATIVE); Leukocyte Esterase Urine UA 2+ (NEGATIVE); Nitrite Urine UA NEGATIVE (Negative); Occult Blood Urine UA TRACE-INTACT (Negative); Protein Urine UA NEGATIVE (Negative); Urobilinogen Urine UA 0.2 E.U./dL (0.2)
[2022-06-08 14:52] LABS: pH Urine UA 6.5 (4.5-8.0)
[2022-06-08 14:59] LABS: Bacteria Urine Many (>30); Culture Indicated Urine Cult Not Indicated; RBC Urine 5-10/HPF (0-5/HPF); Squamous Epithelial Cell Urine 10-30 /HPF (0-5/HPF); WBC Urine 30-100/HPF (0-5/HPF)
== END 2022-06-08 15:15 | disposition home or self-care (01) ==
PROVIDERS: Emergency Provider Emergency Medicine; PCP Student in an Organized Health Care Education/Training Program
DX: O23.41 Unspecified infection of urinary tract in pregnancy, first trimester (principal); N39.0 Urinary tract infection, site not specified; R51.9 Headache, unspecified; Z3A.10 10 weeks gestation of pregnancy
CPT/HCPCS: 36415; 80053; 81001; 85025; 96360; 99284

== ENCOUNTER → 2022-06-16 08:49 | Outpatient (CLI) | payer OTHER, SELFPAY ==
[2022-06-16 10:59] LABS: Hematocrit 33.8 % (36-46); Hemoglobin 10.9 g/dL (12.0-16.0)
[2022-06-16 11:36] LABS: GTT (PREG) 1 Hour PP 50gm Dose 113 mg/dL (76-139)
== END ==
PROVIDERS: PCP Student in an Organized Health Care Education/Training Program; Referring Provider Physician Assistant Medical; Visit Provider Physician Assistant Medical
DX: Z34.02 Encounter for supervision of normal first pregnancy, second trimester (principal); Z3A.26 26 weeks gestation of pregnancy
CPT/HCPCS: 36415; 82950; 85014; 85018

== ENCOUNTER 2022-07-03 21:47 | Observation (INO) | payer OTHER, SELFPAY ==
[2022-07-03 22:10] LABS: Appearance Urine UA CLEAR; Bilirubin Urine UA NEGATIVE (NEGATIVE); Color Urine UA YELLOW; Glucose Urine UA 1+ g/dL (Negative); Ketones Urine UA TRACE (NEGATIVE); Leukocyte Esterase Urine UA NEGATIVE (NEGATIVE); Nitrite Urine UA NEGATIVE (Negative); Occult Blood Urine UA 1+ (Negative); Protein Urine UA TRACE (Negative); Specific Gravity Urine UA 1.015 (1.000-1.035); Urobilinogen Urine UA 0.2 E.U./dL (0.2)
[2022-07-03 22:18] LABS: RBC Urine 0-1/HPF (0-5/HPF); pH Urine UA 5.5 (4.5-8.0)
[2022-07-03 22:19] LABS: Bacteria Urine Few (2-10); Culture Indicated Urine Cult Not Indicated; Squamous Epithelial Cell Urine 5-10 /HPF (0-5/HPF); WBC Urine 0-1/HPF (0-5/HPF)
[2022-07-03 22:47] VITALS: TEMP 36.4
[2022-07-03] MEDS: ACETAMINOPHEN 325 MG TABLET 975 MG PO (22:47)
[2022-07-03 23:42] LABS: Appearance Urine UA CLEAR; Bilirubin Urine UA NEGATIVE (NEGATIVE); Color Urine UA YELLOW; Glucose Urine UA TRACE g/dL (Negative); Ketones Urine UA NEGATIVE (NEGATIVE); Leukocyte Esterase Urine UA NEGATIVE (NEGATIVE); Nitrite Urine UA NEGATIVE (Negative); Occult Blood Urine UA TRACE-LYSED (Negative); Protein Urine UA NEGATIVE (Negative); Specific Gravity Urine UA <=1.005 (1.000-1.035); Urobilinogen Urine UA 0.2 E.U./dL (0.2)
[2022-07-03 23:53] LABS: Bacteria Urine Occasional (0-1); Culture Indicated Urine Cult Not Indicated; RBC Urine 0-1/HPF (0-5/HPF); Squamous Epithelial Cell Urine 1-5 /HPF (0-5/HPF); WBC Urine 0-1/HPF (0-5/HPF)
--- NOTE | 2022-07-04 07:13 | P.TNLD_ITS ---
Visit Information Visit Information Date of evaluation: 07/03/22 Primary OB Provider: Chapis Hicks On-call OB Provider: Connie Ybarra Reason for Evaluation: Yes non-stress test non-stress test reason: other (low back pain) Comments/Additional reasons for admission: 22-year-old at 29 weeks' gestation presenting low back pain and lower abdominal pain past several hours. She was brought in by EMS who placed a line and checked blood sugar (107). Patient denied leaking or bleeding and reported good movement. She was in her usual state of health until the low back pain and cramping started. Denied dehydration. She has been treated for a UTI this and reported urgency and frequency. Vital Signs Vital Signs: Temperature 36.4? blood pressure 128/64 heart rate 90 PFSH Surgical History [place] teeth extracted Family History Grandmother Diabetes mellitus Social History marital status: number of children: 0 household members: spouse lives independently: Yes housing: house pets and animals: Yes (1 dog) education level: high school occupational status: employed current occupational exposures/hazards: No special milan needs: No seatbelt use: always water heater temp set < 120 deg: No working smoke detector in home: Yes fire extinguisher in home: Yes carbon monox detector in home: Yes firearms in home: No do you feel safe at home: Yes Smoking Status: Never smoker second hand exposure: No alcohol intake: never substance use type: does not use during the past year weight has: remained stable well-balanced diet: daily or most days daily servings fruits/ve-4 caffeine: No Type(s) of exercise: walking frequency: 3-4 times per week Objective Labs Labs: Laboratory Results - last 24 hr 07/03/22 07/03/22 22:00 23:30 Urine Color Yellow Yellow Urine Appearance Clear Clear Urine pH 5.5 6.0 Ur Specific [place] 1.015 <=1.005 Urine Protein Trace H Negative Urine Glucose (UA) 1+ H Trace H Urine Ketones Trace H Negative Urine Occult Blood 1+ H Trace-lysed Urine Nitrate Negative Negative Urine Bilirubin Negative Negative Urine Urobilinogen 0.2 0.2 Ur Leukocyte Esterase Negative Negative Urine RBC 0-1/hpf 0-1/hpf Urine WBC 0-1/hpf 0-1/hpf Ur Squamous Epith Cells 5-10 /hpf H 1-5 /hpf Urine Bacteria Few (2-10) H Occasional (0-1) Ur Culture Indicated? Cult not indicated Cult not indicated Evaluation Evaluation Baseline heart rate: 135 Variability: Moderate (11-25) monitor accelerations: Present Monitor Decelerations: Absent Uterine Contraction Intensity: Mild Category of Tracing: Reactive Diagnosis, Plan/Disposition Final Diagnosis (1) Low back pain during : Status: Acute (2) 29 weeks gestation of : Status: Acute Plan/Disposition Plan: 22-year-old at 29 weeks' gestation presenting with low back pain and abdominal cramping. Patient reported that the lower abdominal cramping resolved shortly after arrival in the center but back pain persisted. She was having a uterine irritability verses small 10-20 second contractions on the monitor that dissipated shortly after arrival. Initial UA did not appear to be a clean-catch. UA repeated after hydration and significant for trace glucose, otherwise negative. Low back pain improved significantly after hydration, Tylenol and heating pad. Return precautions reviewed. Follow-up in clinic as scheduled or return to the center as needed. OB Disposition: home
== END 2022-07-04 00:35 | disposition home or self-care (01) ==
PROVIDERS: Family Medicine; Admitting Provider Obstetrics & Gynecology; PCP Student in an Organized Health Care Education/Training Program; Referring Provider Obstetrics & Gynecology; Visit Provider Obstetrics & Gynecology
DX: O47.03 False labor before 37 completed weeks of gestation, third trimester (principal); O26.893 Other specified pregnancy related conditions, third trimester; R10.9 Unspecified abdominal pain; Z3A.29 29 weeks gestation of pregnancy
CPT/HCPCS: 59025; 59050; 81001; G0378; G0379

== ENCOUNTER 2022-07-05 11:41 | Emergency (ER) | payer OTHER, SELFPAY ==
[2022-07-05 11:44] VITALS: BP 135/84; PULSE 101; RESP 22; TEMP 36.7; O2SAT 98; BMI 33.6
[2022-07-05 12:14] LABS: COVID19 -Nasal RAPID Negative (Negative)
--- NOTE | 2022-07-05 12:37 | ED.URI ---
HPI - URI/Sore Throat <SOPHIE Lugo - Last Filed: 07/05/22 19:26> General Chief Complaint: Upper Respiratory Symptoms Stated Complaint: Sore throat, h-ache, drainage in sinuses Time Seen by Provider: 07/05/22 12:06 Source: patient Mode of arrival: Ambulatory History of Present Illness HPI Narrative: This is a 22-year-old female who is 29 weeks , started as a twin with 1 demise at 6 weeks, who is currently on cephalexin for UTI from ER visit on 06/08/2022, and presents to the emergency department complaining of sore throat for the last 3 days with swollen tonsils with left tonsil greater than right. She denies knowing if she has had a group B strep test yet thus far in her . She states that her urinary tract infection symptoms have improved but her throat has been sore and swollen. She denies any nausea or vomiting. Related Data Previous Rx's Medication Instructions Recorded oxycodone 5 mg capsule 5 mg PO BID PRN pain #10 caps 06/15/22 vitamin with calcium 1 tab PO DAILY #90 tabs 06/23/22 no.72-iron 27 mg-folic acid 1 mg tablet ( Vitamins Plus Low Iron) cephalexin 500 mg capsule 500 mg PO QID 7 days #28 caps 07/05/22 penicillin V potassium 500 mg 500 mg PO BID strep throat 10 days 07/05/22 tablet #20 tabs Allergies Allergy/AdvReac Type Severity Reaction Status Date / Time No Known Allergies Allergy Verified 06/28/22 11:45 Review of Systems <SOPHIE Lugo - Last Filed: 07/05/22 19:26> Review of Systems Narrative: Review of systems is negative for acute abnormalities unless otherwise noted in HPI Patient History <SOPHIE Lugo - Last Filed: 07/05/22 19:26> Surgical History [place] teeth extracted Family History Grandmother Diabetes mellitus Social History marital status: number of children: 0 household members: spouse lives independently: Yes housing: house pets and animals: Yes (1 dog) education level: high school occupational status: employed current occupational exposures/hazards: No special milan needs: No seatbelt use: always water heater temp set < 120 deg: No working smoke detector in home: Yes fire extinguisher in home: Yes carbon monox detector in home: Yes firearms in home: No do you feel safe at home: Yes Smoking Status: Never smoker second hand exposure: No alcohol intake: never substance use type: does not use during the past year weight has: remained stable well-balanced diet: daily or most days daily servings fruits/ve-4 caffeine: No Type(s) of exercise: walking frequency: 3-4 times per week Smoking Status: Never smoker Substance Use Type: does not use Exam <SOPHIE Lugo - Last Filed: 07/05/22 19:26> Narrative Exam Narrative: Reviewed vitals signs and nursing notes. General: cooperative, comfortable, in no acute distress, well groomed HEENT: symmetrical facial expressions, moist mucous membranes Cardiovascular: regular rate and rhythm, no peripheral edema, warm extremities Respiratory: normal effort, able to speak in complete sentences, without wheezing, stridor, or abnormal breath sounds. No retractions or tachypnea. GI: abdomen soft, nontender to palpation, nondistended, without masses, rebound tenderness or exquisite tenderness with exam. MSK: moves all extremities, neurovascularly intact, no weakness, normal tone Skin: brisk capillary refill, without pallor or erythema Neuro: normal speech and cognition, A&O x3, ambulatory, clear speech Psych: mental status is grossly normal, congruent mood, normal affect, pleasant and cooperative Initial Vital Signs Initial Vital Signs: Vital Signs Temperature 98.1 F 07/05/22 11:44 Pulse Rate 101 H 07/05/22 11:44 Respiratory Rate 22 07/05/22 11:44 Blood Pressure 135/84 07/05/22 11:44 Pulse Oximetry 98 07/05/22 11:44 Oxygen Delivery Method 07/05/22 11:44 <Savita Floyd MD - Last Filed: 07/08/22 07:07> Initial Vital Signs Initial Vital Signs: Vital Signs Temperature 98.1 F 07/05/22 11:44 Pulse Rate 101 H 07/05/22 11:44 Respiratory Rate 22 07/05/22 11:44 Blood Pressure 135/84 07/05/22 11:44 Pulse Oximetry 98 07/05/22 11:44 Oxygen Delivery Method 07/05/22 11:44 Course <SOPHIE Lugo - Last Filed: 07/05/22 19:26> Orders Ordered: Discontinued Medications Penicillin G Benzathine (Penicillin G Benzathine 1,200,000 Unit/2 Ml Syringe) 1,200,000 unit IM NOW ONE Stop: 07/05/22 12:37 Last Admin: 07/05/22 12:54 Dose: Not Given Documented By: NIKHIL Vital Signs Vital signs: Vital Signs - 8 hr 07/05/22 11:44 07/05/22 13:21 Temperature 98.1 F Pulse Rate 101 H 97 H Respiratory Rate 22 Blood Pressure 135/84 132/77 Pulse Oximetry 98 98 Oxygen Delivery Method Room Air Room Air <Savita Floyd MD - Last Filed: 07/08/22 07:07> Orders Ordered: Discontinued Medications Penicillin G Benzathine (Penicillin G Benzathine 1,200,000 Unit/2 Ml Syringe) 1,200,000 unit IM NOW ONE Stop: 07/05/22 12:37 Last Admin: 07/05/22 12:54 Dose: Not Given Documented By: NIKHIL Vital Signs Vital signs: Vital Signs - 8 hr 07/05/22 11:44 07/05/22 13:21 Temperature 98.1 F Pulse Rate 101 H 97 H Respiratory Rate 22 Blood Pressure 135/84 132/77 Pulse Oximetry 98 98 Oxygen Delivery Method Room Air Room Air MDM - URI/Sore Throat <SOPHIE Lugo - Last Filed: 07/05/22 19:26> Medical Records Medical records narrative: Name: Marleny Rivera Age/Sex: 21/F Attend Dr: Sofya Hung P.A-C Unit#: [id number] : 2000Location: LAB Re05/18/22 Disch: Status: REG CLI SPEC #: [id number] ALLEY: 05/18/22-190 STATUS: COMP REQ #: [id number] SPDESC: RECD: 05/18/[address] [facility] [address]: Sofya Hung P.A-C SOURCE: Urine CC ENTR: 05/18/22-1433 [facility] DR: Cierra Restrepo MD FAX TO: ORDERED: URINE CULTURE COMMENTS: No collection time noted; Received time used as collection time. Procedure Result Verified Site Urine Culture Final 05/20/22 3 or more colony types Mixed gram + aurora. Deemed unsuitable for further studies. Lab Data Labs: Lab Results 07/05/22 07/05/22 Range/Units 11:50 13:06 Urine Color Yellow Urine Appearance Clear Urine pH 6.5 (4.5-8.0) Ur Specific [place] 1.015 (1.000-1.035) Urine Protein Trace H (Negative) Urine Glucose (UA) Trace H (Negative) g/dL Urine Ketones Negative (NEGATIVE) Urine Occult Blood 1+ H (Negative) Urine Nitrate Negative (Negative) Urine Bilirubin Negative (NEGATIVE) Urine Urobilinogen 0.2 (0.2) E.U./dL Ur Leukocyte Esterase Negative (NEGATIVE) Urine RBC 1-5/hpf (0-5/HPF) Urine WBC None seen (0-5/HPF) Amorphous Sediment 1+ Urine Bacteria None seen (None) Ur Culture Indicated? Cult not indicated SARS-CoV-2 (PCR) Negative (Negative) Point of Care Testing Rapid Strep A Negative MDM Narrative Medical decision making narrative: This is a 22-year-old female who is 29 weeks , and presents to the emergency department for a sore throat for the last 3 days status post 10 days of cephalexin for acute cystitis starting on 06/08/2022. On exam, patient had tonsillar adenopathy with your cervical lymphadenopathy, posterior pharynx with erythema and a geographic tongue. She was without stridor, difficulty swallowing, wheezing,, her uvula was midline without signs of peritonsillar abscess. Her rapid strep was negative, throat culture obtained and is pending, opted to treat patient for pharyngitis since she does not have any group B strep testing history with her and her prior urine culture grew out mixed Gram-positive and Gram-negative bacteria from 06/08/2022. Today new urine obtained which shows a trace of blood, protein and a trace of glucose, no leukocyte esterase, RBCs or WBCs, no bacteria on urine microscopy. Urine was sent for culture since her previous urine culture grew out 3 or more colony types of Gram-positive aurora. Patient's rapid strep was negative, throat culture obtained and is pending. Patient was treated with penicillin VK b.i.d. for 10 days for presumed strep pharyngitis. Encouraged patient to stay hydrated, follow up with her OBGYN for a test of cure, we will call her if for throat culture is positive. Patient is appropriate and amenable to discharge home. Vital signs are stable on repeat examination is unremarkable. Patient has been informed of results. Patient has been given strict return to ER precautions for any new or worsening symptoms. Patient understands to follow up closely with outpatient providers as instructed. Patient understands plan and agrees to discharge home. All questions and concerns answered at this time. Urine culture ordered and is pending Patient is afebrile, with normal vital signs for , recommend that she follow up with her primary care provider or Dr. Hicks her OBGYN for test of cure and group B testing information was given to patient. #66: Appropriate Testing for Patients with Pharyngitis [x] The patient has acute pharyngitis/tonsillitis. The patient was prescribed antibiotics today and a strep test or culture was performed. [SATISFIES MIPS PERFORMANCE] [] The patient has acute pharyngitis/tonsillitis and was prescribed antibiotics today. A strep test or culture was not performed because the patient meets one of the following: [MIPS PERFORMANCE EXCEPTION/EXCLUSION] [] Patient received a competing diagnosis. The patient?s competing diagnosis is [] (e.g. acute otitis media, chronic sinusitis, cellulitis, etc.) [] Patient is currently on antibiotics or has been in the last 30 days. [] Patient had a competing comorbid condition within the last 12 months. The patient?s comorbid condition is [] (e.g., tuberculosis, neutropenia, cystic fibrosis, chronic bronchitis, pulmonary edema, respiratory failure, rheumatoid lung disease) [] The patient has acute pharyngitis/tonsillitis. The patient was prescribed antibiotics today and a strep test or culture was not performed. [DOES NOT SATISFY MIPS PERFORMANCE] <Savita Floyd MD - Last Filed: 07/08/22 07:07> Lab Data Labs: Lab Results 07/05/22 07/05/22 Range/Units 11:50 13:06 Urine Color Yellow Urine Appearance Clear Urine pH 6.5 (4.5-8.0) Ur Specific [place] 1.015 (1.000-1.035) Urine Protein Trace H (Negative) Urine Glucose (UA) Trace H (Negative) g/dL Urine Ketones Negative (NEGATIVE) Urine Occult Blood 1+ H (Negative) Urine Nitrate Negative (Negative) Urine Bilirubin Negative (NEGATIVE) Urine Urobilinogen 0.2 (0.2) E.U./dL Ur Leukocyte Esterase Negative (NEGATIVE) Urine RBC 1-5/hpf (0-5/HPF) Urine WBC None seen (0-5/HPF) Amorphous Sediment 1+ Urine Bacteria None seen (None) Ur Culture Indicated? Cult not indicated SARS-CoV-2 (PCR) Negative (Negative) Point of Care Testing Rapid Strep A Negative Discharge Plan Departure Patient Disposition: Home Clinical Impression: Pharyngitis Qualifiers: Pharyngitis/tonsillitis etiology: unspecified etiology Qualified Code(s): J02.9 - Acute pharyngitis, unspecified Instructions: Group B Strep Screening: Don't Wait Until It's Too Late, DI for Strep Throat Activity Restrictions/Additional Instructions: *You have been diagnosed with pharyngitis, this could be due to another Streptococcus bacteria. Your throat culture will grow for 2 days and when this results we will call you if your antibiotic coverage is not adequate however this should cover most forms of strep throat. I hope you start feeling better soon, please use Tylenol 650 mg every 6 hours with water as needed for your pain. Please take this antibiotic twice a day for the next 10 days to treat your pharyngitis. We will call you if your urine is positive and you need to take an additional antibiotic and this will go to your pharmacy as well. I hope you feel better soon, please stay hydrated, follow-up with your primary care provider or your OBGYN for a test of cure. *What to do: *Please continue to take your regular medications as directed. [x ] New medication prescriptions sent to your pharmacy: [ [facility]] [ ] New medication written as a paper prescription [ ] No new medications given *Please follow up with your primary care provider in 2-3 days, call for an appointment. Let them know you were seen in the Emergency Department and that we asked that you be seen for follow-up. We will electronically transmit a record of today's note if your PCP is in our system *If you do not have a primary care provider please contact [phone] to establish care with one of the [facility] primary care providers. *Return to Emergency Department if you should have any new, worsening, or concerning symptoms, such as [fever greater than 101F, chills, worsening pain, persistent vomiting or other bothersome symptoms]. Prescriptions: New penicillin V potassium 500 mg tablet 500 mg PO BID 10 Days Qty: 20 0RF cephalexin 500 mg capsule 500 mg PO QID 7 Days Qty: 28 0RF No Action Vitamin Plus Low Iron 27 mg iron- 1 mg tablet 1 tab PO DAILY Qty: 90 1RF oxycodone 5 mg capsule 5 mg PO BID PRN (Reason: pain) Qty: 10 0RF Referrals: Cierra Restrepo MD [Primary Care Provider] - Chapis Hicks MD [Physician] - Visit Report Forms: Patient Portal/API <Savita Floyd MD - Last Filed: 07/08/22 07:07> [facility]: I was immediately available in the department for consultation throughout this patient's visit. I agree with documentation as above. Savita Floyd MD
[2022-07-05 13:21] VITALS: BP 132/77; PULSE 97; O2SAT 98
[2022-07-05 13:41] LABS: Appearance Urine UA CLEAR; Bilirubin Urine UA NEGATIVE (NEGATIVE); Color Urine UA YELLOW; Glucose Urine UA TRACE g/dL (Negative); Ketones Urine UA NEGATIVE (NEGATIVE); Leukocyte Esterase Urine UA NEGATIVE (NEGATIVE); Nitrite Urine UA NEGATIVE (Negative); Occult Blood Urine UA 1+ (Negative); Protein Urine UA TRACE (Negative); Specific Gravity Urine UA 1.015 (1.000-1.035); Urobilinogen Urine UA 0.2 E.U./dL (0.2)
[2022-07-05 13:50] LABS: pH Urine UA 6.5 (4.5-8.0)
[2022-07-05 13:52] LABS: Amorphous Sediment Urine 1+; Bacteria Urine None Seen; Culture Indicated Urine Cult Not Indicated; RBC Urine 1-5/HPF (0-5/HPF); WBC Urine None Seen (0-5/HPF)
== END 2022-07-05 13:22 | disposition home or self-care (01) ==
PROVIDERS: Emergency Medicine; Emergency Provider Nurse Practitioner Critical Care Medicine; PCP Student in an Organized Health Care Education/Training Program
DX: J02.9 Acute pharyngitis, unspecified (principal); Z20.822 Contact with and (suspected) exposure to COVID-19
CPT/HCPCS: 81001; 87070; 87086; 87635; 87880; 99282; C9803; J0561

== ENCOUNTER 2022-07-21 20:48 | Observation (INO) | payer OTHER, SELFPAY ==
[2022-07-21 22:02] LABS: Appearance Urine UA CLEAR; Bilirubin Urine UA NEGATIVE (NEGATIVE); Color Urine UA YELLOW; Glucose Urine UA NEGATIVE (Negative); Ketones Urine UA 1+ (NEGATIVE); Leukocyte Esterase Urine UA 1+ (NEGATIVE); Nitrite Urine UA NEGATIVE (Negative); Occult Blood Urine UA 1+ (Negative); Protein Urine UA NEGATIVE (Negative); Urobilinogen Urine UA 0.2 E.U./dL (0.2)
[2022-07-21 22:17] LABS: Bacteria Urine Few (2-10); Calcium Oxalate Crystals Urine Few; Culture Indicated Urine Specimen Cultured; RBC Urine 0-1/HPF (0-5/HPF); Squamous Epithelial Cell Urine 1-5 /HPF (0-5/HPF); WBC Urine 0-1/HPF (0-5/HPF)
[2022-07-21 22:27] LABS: Fetal Fibronectin Negative
--- NOTE | 2022-07-21 22:35 | DI.US.S_ITS ---
PROCEDURE: US OB LIMITED INDICATIONS: PTL; CERVICAL LENGTH OUTSIDE/PRIOR DATING DATA: Last menstrual period (LMP): 12/11/2021. LMP-based estimated date of delivery (LU): 09/17/2022. First dating scan (date and location): 05/22/2022. Estimated date of delivery (LU) from first dating scan: 09/13/2022. The calculations are made using the working LU of 09/17/2022. TECHNIQUE: Real-time scanning was performed of the fetus, with image documentation. COMPARISON: [facility], OB >= 14 WEEKS FETUS, 07/11/2022, 10:18. [facility], OB >= 14 WEEKS FETUS, 06/28/2022, 12:15. [facility] OB >= 14 WEEKS FETUS, 05/22/2022, 8:46. [facility], OB LIMITED, 05/04/2022, 20:52. FINDINGS: A single living intrauterine gestation is present. Presentation: Vertex. Placenta: Placental position is left posterior, without previa. Amniotic fluid index: 17.7 cm, normal range is 5-24 cm. Single deepest vertical pocket is 6.4 cm. heart rate: 127 beats per minute. Maternal cervical canal: The 0.6 cm long. Normal lower limit is 2.5 cm. Estimated gestational age from initial scan: 32 weeks 2 days IMPRESSION: 1. Single living intrauterine demonstrated in vertex presentation. 2. Cervix appears closed and normal in length. Dictated by: Mark Mendez M.D. on 07/22/2022 at 1:05 Approved by: Mark Mendez M.D. on 07/22/2022 at 1:07
== END 2022-07-22 00:30 | disposition home or self-care (01) ==
PROVIDERS: Admitting Provider Obstetrics & Gynecology; PCP Student in an Organized Health Care Education/Training Program; Referring Provider Obstetrics & Gynecology; Visit Provider Obstetrics & Gynecology
DX: O47.03 False labor before 37 completed weeks of gestation, third trimester (principal); Z3A.31 31 weeks gestation of pregnancy
CPT/HCPCS: 59050; 76815; 81003; 81015; 82731; 87086; G0378; G0379

== ENCOUNTER 2022-08-28 14:17 | Outpatient (CLI) | payer OTHER, SELFPAY | END 2022-08-28 15:00 | disposition home or self-care (01) | LOC: LABOR 14:28 → OB 09-04 07:57 | PROVIDERS: PCP Student in an Organized Health Care Education/Training Program; Referring Provider Obstetrics & Gynecology; Visit Provider Obstetrics & Gynecology | DX: O23.43 Unspecified infection of urinary tract in pregnancy, third trimester (principal); Z3A.37 37 weeks gestation of pregnancy; Z34.03 Encounter for supervision of normal first pregnancy, third trimester | CPT/HCPCS: 59025; 87653; G0378; G0379 ==

== ENCOUNTER → 2022-08-28 14:53 | Outpatient (CLI) | payer OTHER, SELFPAY ==
[2022-08-29 13:20] LABS: Strep Grp B PCR POS for Grp B Strep
== END ==
PROVIDERS: PCP Student in an Organized Health Care Education/Training Program; Visit Provider Obstetrics & Gynecology
DX: Z34.03 Encounter for supervision of normal first pregnancy, third trimester (principal); Z3A.37 37 weeks gestation of pregnancy
CPT/HCPCS: 87653

== ENCOUNTER 2022-09-11 17:46 | Observation (INO) | payer OTHER, SELFPAY ==
--- NOTE | 2022-09-11 19:10 | PM.OBTRLD ---
Visit Information Visit Information Date of evaluation: 09/11/22 Primary OB Provider: Edwige Ward On-call OB Provider: Chapis Hicks Comments/Additional reasons for admission: 22-year-old G1 female presents at 39 weeks 1 day reporting uncomfortable contractions. Contractions started earlier today and have become more frequent and more uncomfortable. She denies leakage of fluid or vaginal bleeding. has been uncomplicated. Vital Signs Vital Signs: BP 136/68 Pulse 98 PFSH Surgical History [place] teeth extracted Family History Grandmother Diabetes mellitus Social History marital status: number of children: 0 household members: spouse lives independently: Yes housing: house pets and animals: Yes (1 dog) education level: high school occupational status: employed current occupational exposures/hazards: No special milan needs: No seatbelt use: always water heater temp set < 120 deg: No working smoke detector in home: Yes fire extinguisher in home: Yes carbon monox detector in home: Yes firearms in home: No do you feel safe at home: Yes Smoking Status: Never smoker second hand exposure: No alcohol intake: never substance use type: does not use during the past year weight has: remained stable well-balanced diet: daily or most days daily servings fruits/ve-4 caffeine: No Type(s) of exercise: walking frequency: 3-4 times per week Evaluation Evaluation Baseline heart rate: 145 Variability: Moderate (11-25) monitor accelerations: Present Monitor Decelerations: Absent Contraction Frequency (minutes): 5 Uterine Contraction Intensity: Mild Category of Tracing: Reactive Status: Category l Cervical dilation (cm): 1 Cervical effacement (%): 20 station: -3 Comments: cervix posterior Diagnosis, Plan/Disposition Plan/Disposition Plan: 22 yo G1 2 39weeks 1day EGA presented for uncomfortable contractions. She is wendi every 4-6 minutes, however cervix is unchanged after 2 hours and is still 1/ 20%/posterior. no signs of active labor yet, discussed possible early labor. Advised observation and recheck. She did ask for her repeat cervical exam early, to go home if she was not changing. cervical exam was unchanged. Patient discharged to home with labor precautions reviewed. She will return if contractions become more uncomfortable, for leakage of fluid, vaginal bleeding, or decreased movement.. EFM was Reassuring, category 1, reactive. OB Disposition: home
== END 2022-09-11 20:14 | disposition home or self-care (01) ==
PROVIDERS: Admitting Provider Obstetrics & Gynecology; PCP Student in an Organized Health Care Education/Training Program; Referring Provider Obstetrics & Gynecology; Visit Provider Obstetrics & Gynecology
DX: O47.1 False labor at or after 37 completed weeks of gestation (principal); Z3A.39 39 weeks gestation of pregnancy
CPT/HCPCS: 59025; 59050; G0378; G0379

== ENCOUNTER 2022-09-12 17:04 | Outpatient (CLI) | payer OTHER, SELFPAY ==
[2022-09-12 17:21] LABS: Add Manual Diff / Slide Review NO; Basophils Absolute Auto 0 /uL (0-100); Basophils Percent Auto 0.3 % (0-2); Eosinophils Absolute Auto 100 /uL (0-450); Eosinophils Percent Auto 0.9 % (2-4); Hemoglobin 11.7 g/dL (12.0-16.0); Lymphocytes Absolute Auto 1800 /uL (1100-4500); Lymphocytes Percent Auto 16.9 % (25-40); Mean Corpuscular HGB Conc 32.6 % (30-36); Mean Corpuscular Hemoglobin 23.2 PG (26-34); Monocytes Absolute Auto 800 /uL (0-900); Monocytes Percent Auto 7.8 % (3-14); Neutrophils Absolute Auto 7800 /uL (1500-7000); Neutrophils Percent Auto 74.1 % (50-75); Platelet Count 255 X10^3/uL (150-400); Red Blood Cell Count 5.07 X10^6/uL (4.0-5.2); White Blood Cell Count 10.5 X10^3/uL (4.5-11.0)
[2022-09-12 17:35] LABS: Alanine Aminotransferase 19 IU/L (<35); Albumin 3.5 g/dL (3.5-5.0); Albumin Globulin Ratio 1.2 (1.0-2.8); Alkaline Phosphatase 238 U/L (38-126); Aspartate Aminotransferase 24 IU/L (14-36); Bilirubin Total 0.5 mg/dL (0.2-1.3); Bilirubin Unconjugated 0.6 mg/dL (0.0-1.1); HEMOLYSIS < 15 (0-50); Total Protein 6.5 g/dL (6.3-8.2); Uric Acid 4.1 mg/dL (2.5-6.2)
[2022-09-12 18:13] LABS: Creatinine Urine Random 89.6 mg/dL; Protein (Total) Urine Random 12 mg/dL (0-12); Protein Creatinine Ratio Urine 0.13 GRAM/24H
--- NOTE | 2022-09-12 18:36 | PM.OBTRLD ---
Visit Information Visit Information Date of evaluation: 09/12/22 Primary OB Provider: Chapis Hicks On-call OB Provider: Benjamin Arreola Comments/Additional reasons for admission: Decreased movement, isolated elevation of BP in-office Vital Signs Vital Signs: 114/75, 116/85, 109/65 PFSH Surgical History [place] teeth extracted Family History Grandmother Diabetes mellitus Social History marital status: number of children: 0 household members: spouse lives independently: Yes housing: house pets and animals: Yes (1 dog) education level: high school occupational status: employed current occupational exposures/hazards: No special milan needs: No seatbelt use: always water heater temp set < 120 deg: No working smoke detector in home: Yes fire extinguisher in home: Yes carbon monox detector in home: Yes firearms in home: No do you feel safe at home: Yes Smoking Status: Never smoker second hand exposure: No alcohol intake: never substance use type: does not use during the past year weight has: remained stable well-balanced diet: daily or most days daily servings fruits/ve-4 caffeine: No Type(s) of exercise: walking frequency: 3-4 times per week Exam HENMT Head: normal to inspection, normocephalic and atraumatic Eyes General: appearance normal, both eyes and all related structures Resp Effort & Inspection: normal respiratory effort and able to speak in complete sentences GI Inspection: normal to inspection Palpation: soft and no hepatosplenomegaly Uterus Location (Fundal Height): 38 Presentation: vertex Estimated Weight (lbs): 8 Extrem Right lower extremity: normal to inspection Objective Labs Result Diagrams: 09/12/22 17:10 Labs: Laboratory Results - last 24 hr 09/12/22 09/12/22 09/12/22 17:10 17:10 17:47 WBC 10.5 RBC 5.07 Hgb 11.7 L Hct 36.0 MCV 71.0 L MCH 23.2 L MCHC 32.6 RDW 19.0 H Plt Count 255 Neut % (Auto) 74.1 Lymph % (Auto) 16.9 L [place] % (Auto) 7.8 Eos % (Auto) 0.9 L Baso % (Auto) 0.3 Neut # (Auto) 7800 H Lymph # (Auto) 1800 [place] # (Auto) 800 Eos # (Auto) 100 Baso # (Auto) 0 Uric Acid 4.1 Total Bilirubin 0.5 Conjugated Bilirubin 0.0 Unconjugated Bilirubin 0.6 AST 24 ALT 19 Alkaline Phosphatase 238 H Total Protein 6.5 Albumin 3.5 Globulin 3.0 Albumin/Globulin Ratio 1.2 U Random Total Protein 12 Urine Creatinine 89.6 Protein/Creatinin Ratio 0.13 Evaluation Evaluation Baseline heart rate: 150 Variability: Moderate (11-25) monitor accelerations: Present Monitor Decelerations: Absent Category of Tracing: Reactive Status: Category l Comments: Cervix not rechecked from 09/11/2022 Diagnosis, Plan/Disposition Final Diagnosis (1) : Status: Acute (2) Elevated BP without diagnosis of hypertension: Status: Acute Plan/Disposition Plan: Home to bedrest with close observation of BP. Counselled regarding signs/symptoms of severe blood pressure elevation. Labor precautions reviewed. Follow-up with Dr. Hicks to be scheduled for 1 week or as needed. OB Disposition: home
== END 2022-09-12 18:11 | disposition home or self-care (01) ==
LOC: OB 09-18 08:44
PROVIDERS: PCP Student in an Organized Health Care Education/Training Program; Referring Provider Obstetrics & Gynecology; Visit Provider Obstetrics & Gynecology
DX: O36.8130 Decreased fetal movements, third trimester, not applicable or unspecified (principal); O26.893 Other specified pregnancy related conditions, third trimester; R03.0 Elevated blood-pressure reading, without diagnosis of hypertension; Z3A.39 39 weeks gestation of pregnancy
CPT/HCPCS: 59025; 80076; 82570; 84156; 84550; 85025; G0378; G0379

== ENCOUNTER → 2022-11-01 11:44 | Outpatient (CLI) | payer OTHER, SELFPAY ==
[2022-11-01 14:44] LABS: Urine N gonorrhoeae NOT DETECTED
[2022-11-01 14:45] LABS: Urine Chlamydia NOT DETECTED
== END ==
PROVIDERS: PCP Student in an Organized Health Care Education/Training Program; Visit Provider Obstetrics & Gynecology
DX: Z20.2 Contact with and (suspected) exposure to infections with a predominantly sexual mode of transmission (principal)
CPT/HCPCS: 87491; 87591

== ENCOUNTER 2023-01-03 18:39 | Emergency (ER) | payer OTHER, SELFPAY ==
[2023-01-03 19:04] VITALS: BP 127/65; PULSE 76; RESP 18; TEMP 36.8; O2SAT 99; BMI 26.5
--- NOTE | 2023-01-03 19:09 | DI.RAD.S_ITS ---
PROCEDURE: XR HAND RT MIN 3V INDICATIONS: slammed hand in car door TECHNIQUE: 3 views of the hand(s) acquired. COMPARISON: None. FINDINGS: Bones: No fractures or dislocations. Carpal bones are normally aligned. No suspicious bony lesions. Soft tissues: No suspicious soft tissue calcifications. IMPRESSION: Intact right hand. Dictated by: Jessica Dennis M.D. on 01/03/2023 at 20:10 Approved by: Jessica Dennis M.D. on 01/03/2023 at 20:11
== END 2023-01-03 23:01 | disposition left against medical advice (07) ==
PROVIDERS: Emergency Provider Emergency Medicine; PCP Student in an Organized Health Care Education/Training Program
DX: S69.91XA Unspecified injury of right wrist, hand and finger(s), initial encounter (principal); W23.0XXA Caught, crushed, jammed, or pinched between moving objects, initial encounter
CPT/HCPCS: 73130; 99281

== ENCOUNTER 2023-01-31 08:43 | Emergency (ER) | payer OTHER, SELFPAY ==
[2023-01-31 08:59] VITALS: BP 120/60; PULSE 86; RESP 18; TEMP 37.1; O2SAT 99; BMI 27.4
[2023-01-31 09:05] VITALS: BP 120/60; PULSE 86; RESP 18; O2SAT 99
--- NOTE | 2023-01-31 09:14 | ED_ITS ---
HPI - Female Genitourinary General Chief complaint: Urogenital-Female Stated complaint: think she has UTI T-2 Time Seen by Provider: 01/31/23 09:09 Source: patient Mode of arrival: Ambulatory History of Present Illness HPI Narrative: Patient here for urinary complaints. Patient has had UTIs before. Feels like another UTI. Patient states her urine had a malodorous scent to it. No frequency or urgency. No fever chills. No flank pain. No abdominal or pubic pain. Patient in no distress. Denies . Is not . She has primary care at the [facility]. Related Data Previous Rx's Medication Instructions Recorded vitamin with calcium 1 tab PO DAILY #90 tabs 06/23/22 no.72-iron 27 mg-folic acid 1 mg tablet ( Vitamins Plus Low Iron) norelgestromin 150 mcg-e.estradiol See Rx Instructions .Route 12/27/22 35 mcg/24 hr weekly transderm .COMPLEX #9 patches patch (Zafemy) Allergies Allergy/AdvReac Type Severity Reaction Status Date / Time No Known Allergies Allergy Verified 11/01/22 11:03 Review of Systems Review of Systems Narrative: GENERAL: negative chills, fatigue, malaise, fever, sweats. HEENT: negative sinus pain, ear pain, sore throat RESPIRATORY: negative dyspnea, cough CARDIOVASCULAR: negative chest pain, palpitations GASTROINTESTINAL: negative nausea, vomiting, abdominal pain : negative dysuria, frequency, hematuria, positive malodorous urine MUSCULOSKELETAL: negative muscle or bony pain SKIN: negative rash, skin lesions NEUROLOGIC: negative weakness, numbness ROS Unobtainable: All systems reviewed & are unremarkable except as noted in HPI and below Patient History Surgical History [place] teeth extracted Family History Grandmother Diabetes mellitus Substance Use Type: does not use Exam Narrative Exam Narrative: GENERAL: in no distress, not toxic not dyspneic HEAD: Normocephalic. EYES: Pupils equal round ENT: Mucous membranes moist. NECK: Trachea midline. CARDIOVASCULAR: Regular rate and rhythm without murmurs RESPIRATORY: Clear to auscultation. Breath sounds equal bilaterally. No wheezes, rales, or rhonchi. GASTROINTESTINAL: Abdomen soft, non-tender abdomen soft flat nontender no peritoneal signs no suprapubic tenderness. No CVA tenderness. No pain out of p roportion to exam. Bowel sounds are present. EXTREMITIES: No gross deformities. BACK: No flank tenderness. NEURO: AOx4. SKIN: Warm and dry PSYCH: Not anxious, is cooperative Initial Vital Signs Initial Vital Signs: Vital Signs Temperature 98.7 F 01/31/23 08:59 Pulse Rate 86 01/31/23 08:59 Respiratory Rate 18 01/31/23 08:59 Blood Pressure 120/60 01/31/23 08:59 Pulse Oximetry 99 01/31/23 08:59 Oxygen Delivery Method Room Air 01/31/23 08:59 Course Orders Ordered: Discontinued Medications Nitrofurantoin Macrocrystals (Nitrofurantoin Er 100 Mg Capsule) 100 mg PO NOW ONE Stop: 01/31/23 09:14 Last Admin: 01/31/23 09:17 Dose: 100 mg Documented By: NIKHIL Vital Signs Vital signs: Vital Signs - 8 hr 01/31/23 08:59 01/31/23 09:05 Temperature 98.7 F Pulse Rate 86 86 Respiratory Rate 18 18 Blood Pressure 120/60 120/60 Pulse Oximetry 99 99 Oxygen Delivery Method Room Air Room Air MDM - Female Genitourinary Lab Data Labs: Lab Results 01/31/23 01/31/23 Range/Units 08:50 08:50 Urine RBC 1-5/hpf (0-5/HPF) Urine WBC 5-10/hpf H (0-5/HPF) Ur Squamous Epith Cells 10-30 /hpf H D (0-5/HPF) Urine Bacteria Many (>30) H (None) Urine Test Negative (Negative) Urine Dip Bedside Urine Glucose Negative Bedside Urine Bilirubin - Negative Bedside Urine Ketone +/- 5 Urine Specific [place] 1.030 Bedside Urine Occult Blood - Negative Bedside Urine pH 5.5 Bedside Urine Protein + 30 Bedside Urine Urobilinogen 0.2 Bedside Urine Nitrite - Negative Bedside Urine Leukocytes + 70 Esterase MDM Narrative Medical decision making narrative: After history and exam urinalysis test ordered Macrobid ordered [facility] CC: Malodorous urine Complicating co-morbidities: None Data collected from: Patient Medical records reviewed: No recent visits for this complaint Differential considered: Includes but not limited to UTI cystitis kidney stone Exam documented above, pertinent findings include: Nontender abdomen nontender suprapubic region no CVA tenderness Lab Test results independently reviewed as above. Pertinent findings: Urinalysis shows nitrite and leukocytes Imaging studies independently reviewed: None indicated Consultations: None indicated Treatments: Macrobid Re-evaluations: Reviewed results with patient. Return precautions reviewed with her. She understands and desires discharge home. Discussion: Appropriate for discharge home. Treating UTI clinically. Return precautions reviewed with her. Exam is reassuring. Patient has primary care to follow up with. Prescription provided as well. Not toxic at discharge Diagnosis: Acute UTI Discharge Plan Departure Patient Disposition: Home Clinical Impression: Urinary tract infection Instructions: DI for Urinary Tract Infection (UTI) Activity Restrictions/Additional Instructions: Please see your family doctor on [facility] in a week for re-evaluation. Keep well hydrated. Please continue prescribed Macrobid antibiotic this evening. Complete full course of 5 days. Return if worse if any questions or concerns Prescriptions: No Action Vitamin Plus Low Iron 27 mg iron- 1 mg tablet 1 tab PO DAILY Qty: 90 1RF Zafemy 150-35 mcg/24 hr patch weekly See Rx Instructions .ROUTE .COMPLEX Qty: 9 3RF Dose Instruction: APPLY ONE PATCH EVERY 7 DAYS FOR 3 WEEKS OF 4 WEEK CYCLE. Rx Instructions: APPLY ONE PATCH EVERY 7 DAYS FOR 3 WEEKS OF 4 WEEK CYCLE. Referrals: Cierra Restrepo MD [Primary Care Provider] - Stand Alone Forms: Patient Portal/API
[2023-01-31 09:17] LABS: Bacteria Urine Many (>30); RBC Urine 1-5/HPF (0-5/HPF); Squamous Epithelial Cell Urine 10-30 /HPF (0-5/HPF); WBC Urine 5-10/HPF (0-5/HPF)
[2023-01-31] MEDS: NITROFURANTOIN ER 100 MG CAPSULE PO (09:17)
[2023-01-31 09:21] LABS: Pregnancy Test Urine Negative (Negative)
== END 2023-01-31 09:19 | disposition home or self-care (01) ==
PROVIDERS: Emergency Provider Emergency Medicine; PCP Student in an Organized Health Care Education/Training Program
DX: N39.0 Urinary tract infection, site not specified (principal)
CPT/HCPCS: 81003; 81015; 81025; 87086; 99283